=== PATIENT | male | born 1955 | race Caucasian/White ===

== ENCOUNTER 2021-12-08 12:01 | Emergency (ER) | payer MEDICAID ==
[~2021-12-08] VITALS: Ht 165.1 cm; Wt 82.0 kg
[2021-12-08] MEDS ORDERED: SIMV-261 PO (12:13)
[2021-12-08] MEDS ORDERED: INSU100I26 SQ (12:13)
[2021-12-08] MEDS ORDERED: TAMS-13 PO (12:13)
[2021-12-08] MEDS ORDERED: GLIP5TAB97 PO (12:13)
[2021-12-08] MEDS ORDERED: ASPI-1227 PO (12:13)
[2021-12-08] MEDS ORDERED: SITA100 PO (12:13)
[2021-12-08] MEDS ORDERED: METF-1211 PO (12:13)
[2021-12-08] MEDS ORDERED: GABA-1216 PO (12:13)
[2021-12-08] MEDS ORDERED: FURO20 PO (12:13)
[2021-12-08] MEDS ORDERED: NITR0.4T52 SL (12:13)
[2021-12-08 13:00] LABS: BASOPHILS % (AUTO) 0.7 % (0.0-2.0); HEMATOCRIT 38.4 % (41-53); HEMOGLOBIN 12.8 g/dL (13.5-17.5); LYMPHOCYTES % (AUTO) 14.5 % (22.0-44.0); MEAN CORPUSCULAR HEMOGLOBIN 30.7 pg (26.0-34.0); MEAN CORPUSCULAR HGB CONC 33.3 G/dL (31.0-37.0); MEAN CORPUSCULAR VOLUME 92 fL (80-100); MONOCYTES # (AUTO) 0.4 K/uL (0.1-1.0); MONOCYTES % (AUTO) 5.3 % (2.0-9.0); NEUTROPHILS # (AUTO) 5.6 K/uL (1.8-7.7); NEUTROPHILS % (AUTO) 78.5 % (40.0-70.0); PLATELET COUNT (AUTO) 191 K/uL (150-450); RED BLOOD CELL COUNT(AUTO) 4.16 MIL/uL (4.50-5.90); RED CELL DISTRIBUTION WIDTH 13.5 % (11.5-14.5)
[2021-12-08 13:13] LABS: CALCIUM, TOTAL 8.9 mg/dL (8.8-10.5); CREATININE 1.39 mg/dL (0.60-1.30); POTASSIUM 4.7 mmol/L (3.5-5.1)
[2021-12-08 13:15] LABS: INR 1.2 (0.9-1.1); PROTHROMBIN TIME 12.4 SEC (9.4-11.6)
[2021-12-08 13:18] LABS: ALBUMIN 3.6 g/dL (3.4-5.0); BILIRUBIN,TOTAL 0.5 mg/dL (0.1-1.0)
[2021-12-08 14:07] VITALS: BP 155/80
== END 2021-12-08 15:12 | disposition home or self-care (01) ==
LOC: EMS 12:20
DX: R07.89 Other chest pain (principal); E11.9 Type 2 diabetes mellitus without complications; I11.0 Hypertensive heart disease with heart failure; I50.9 Heart failure, unspecified; N40.0 Benign prostatic hyperplasia without lower urinary tract symptoms; Z88.0 Allergy status to penicillin
CPT/HCPCS: 71045; 80053; 82962; 83880; 84484; 85025; 85610; 85730; 93005; 99285; 36415-L1; 36415-TC